=== PATIENT | male | born 2000 | race Caucasian/White ===

== ENCOUNTER 2020-06-13 17:03 | Emergency (ER) | payer BC, OTHER ==
--- NOTE | 2020-06-13 17:13 | EDM.PDOC ---
ED HPI GENERAL MEDICAL PROBLEM - General Stated Complaint: COVID TEST Time Seen by Provider: 06/13/20 17:07 Source of Information: Reports: Patient History Limitations: Reports: No Limitations - History of Present Illness INITIAL COMMENTS - FREE TEXT/NARRATIVE: HISTORY AND PHYSICAL: History of present illness: Patient is a 19-year-old male who presents to the emergency room with complaints of subjective fever, cough, sore throat and body aches x 2 days. 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 He is concerned that he may have COVID and would like to be tested. Patient denies any fever, chills, headache, change in vision, syncope or near syncope. Denies any chest pain, back pain, shortness of breath or cough. Denies any abdominal pain, nausea, vomiting, diarrhea, constipation or dysuria. Has not noted any blood in urine or stool. Patient has been eating and drinking appropriately. Review of systems: As per history of present illness and below otherwise all systems reviewed and negative. Past medical history: As per history of present illness and as reviewed below otherwise noncontributory. Surgical history: As per history of present illness and as reviewed below otherwise noncontributory. Social history: See social history for further information Family history: As per history of present illness and as reviewed below otherwise noncontributory. Physical exam: General: Well developed and well nourished 19-year-old male. Alert and orientated x 3. Nontoxic in appearance and in no acute distress. Vital signs are stable and have been reviewed by me. Nursing notes were reviewed. HEENT: Atraumatic, normocephalic, pupils equal and reactive bilaterally, negative for conjunctival pallor or scleral icterus, mucous membranes moist, TMs normal bilaterally, throat clear, neck supple, nontender, trachea midline. No drooling or trismus noted. No meningeal signs. No hot potato voice noted. Lungs: Clear to auscultation, breath sounds equal bilaterally, chest nontender. Normal work of breathing, no accessory muscles used. Heart: S1S2, regular rate and rhythm without overt murmur Abdomen: Soft, nondistended, nontender. Skin: Intact, warm, dry. No lesions or rashes noted. Hematologic: No petechiae or purpra. Mucosa appropriate color and normal nail bed color and refill. Extremities: Atraumatic, moves all extremities per self without difficulty or deficits, negative for cords or calf pain. Neurovascular unremarkable. Neuro: Awake, alert, oriented. Cranial nerves II through XII unremarkable. Cerebellum unremarkable. Motor and sensory unremarkable throughout. Exam nonfocal. Notes: My physical exam is unremarkable. His vital signs are stable. Negative COVID- 19 screening. We discussed signs and symptoms that would prompt them to return to the Emergency Department. Medication, follow up and supportive care measures were reviewed and discussed. Voices understanding and is agreeable to plan of care. Denies any further questions or concerns at this time. Diagnostics: COVID-19 Therapeutics: None Prescription: None Impression: Viral URI Plan: 1. Today your COVID testing is negative. Continue to follow good hand washing and contact precautions. 2. Make sure you are drinking plenty of fluids. Alternate Tylenol and ibuprofen as needed for pain and fever management. 3. We always encourage you to follow up with your primary care provider or recommended specialist in the next few days for re-evaluation and further care/management. If your symptoms should worsen, new symptoms develop or any of the signs and symptoms we discussed should arise please return to the emergency room or call 911 (if needed). Definitive disposition and diagnosis as appropriate pending reevaluation and review of above. throat Pain Score (Numeric/FACES): 7 - Related Data Allergies Allergy/AdvReac Type Severity Reaction Status Date / Time amoxicillin [Amoxicillin] Allergy Rash Verified 06/13/20 17:16 bacitracin Allergy Rash Verified 06/13/20 17:16 [From Neosporin ([id number])] banana [Banana] Allergy Itching Verified 06/13/20 17:16 neomycin Allergy Rash Verified 06/13/20 17:16 [From Neosporin ([id number])] polymyxin B Allergy Rash Verified 06/13/20 17:16 [From Neosporin ([id number])] Sulfa (Sulfonamide Allergy Hives Verified 06/13/20 17:16 Antibiotics) janett Allergy Hives Uncoded 06/13/20 17:16 Home Meds: Home Meds Albuterol Sulfate [Ventolin Hfa] 1 dose PO PRN 09/11/15 [History] ED ROS GENERAL - Review of Systems Review Of Systems: Comprehensive ROS is negative, except as noted in HPI. ED EXAM, GENERAL - Physical Exam Exam: See Below (See dictation) Course - Vital Signs Last Recorded V/S: Last Vital Signs Temp 98.3 F 06/13/20 17:12 Pulse 90 06/13/20 17:12 Resp 20 06/13/20 17:12 BP 150/93 H 06/13/20 17:12 Pulse Ox 95 06/13/20 17:12 - Orders/Labs/Meds Labs: Laboratory Tests 06/13/20 Range/Units 17:21 COVID-19 (CARLY) NEGATIVE (NEGATIVE) Departure - Departure Time of Disposition: 17:51 Disposition: Home, Self-Care 01 Clinical Impression: Viral upper respiratory illness - Discharge Information Instructions: Viral Respiratory Infection, [id number] Referrals: PCP,None [Primary Care Provider] - Additional Instructions: The following information is given to patients seen in the emergency department who are being discharged to home. This information is to outline your options for follow-up care. We provide all patients seen in our emergency department with a follow-up referral. The need for follow-up, as well as the timing and circumstances, are variable depending upon the specifics of your emergency department visit. If you don't have a primary care physician on staff, we will provide you with a referral. We always advise you to contact your personal physician following an emergency department visit to inform them of the circumstance of the visit and for follow-up with them and/or the need for any referrals to a consulting specialist. The emergency department will also refer you to a specialist when appropriate. This referral assures that you have the opportunity for follow-up care with a specialist. All of these measure are taken in an effort to provide you with optimal care, which includes your follow-up. Under all circumstances we always encourage you to contact your private physician who remains a resource for coordinating your care. When calling for follow-up care, please make the office aware that this follow-up is from your recent emergency room visit. If for any reason you are refused follow-up, please contact the [facility] Emergency Department at and asked to speak to the emergency department charge nurse. [facility] [address] [place] [id number] [facility] [address] [place] [address] Thank you for choosing the [facility] emergency department in [place] for your medical needs today. It was a pleasure caring for you. 1. Today your COVID testing is negative. Continue to follow good hand washing and contact precautions. 2. Make sure you are drinking plenty of fluids. Alternate Tylenol and ibuprofen as needed for pain and fever management. 3. We always encourage you to follow up with your primary care provider or recommended specialist in the next few days for re-evaluation and further care/management. If your symptoms should worsen, new symptoms develop or any of the signs and symptoms we discussed should arise please return to the emergency room or call 911 (if needed). Sepsis Event Note (ED) - Focused Exam Vital Signs: Vital Signs Temp Pulse Resp BP Pulse Ox 06/13/20 17:12 98.3 F 90 20 150/93 H 95
[2020-06-13 17:48] VITALS: BP 150/93
[2020-06-13 18:09] VITALS: PULSE 77
== END 2020-06-13 18:09 | disposition home or self-care (01) ==
LOC: MW.ED 17:03
DX: J06.9 Acute upper respiratory infection, unspecified (principal); Z88.1 Allergy status to other antibiotic agents; Z91.048 Other nonmedicinal substance allergy status; Z91.018 Allergy to other foods; Z88.2 Allergy status to sulfonamides; Z20.828 Contact with and (suspected) exposure to other viral communicable diseases
CPT/HCPCS: 99283; U0002

== ENCOUNTER 2021-08-27 10:04 | Emergency (ER) | payer OTHER ==
[2021-08-27] MEDS ORDERED: Sodium Chloride 0.9% 10 ML Syringe FLUSH PRN (10:15)
[2021-08-27] MEDS ORDERED: Sodium Chloride 0.9% 2.5 ML Syringe FLUSH PRN (10:15)
[2021-08-27] MEDS ORDERED: Sodium Chloride 0.9% 1,000 ML IV ONE (11:02)
--- NOTE | 2021-08-27 11:02 | EDM.PDOC ---
ED HPI GENERAL MEDICAL PROBLEM - General Chief Complaint: Abdominal Pain Stated Complaint: ABDOMINAL PAIN Time Seen by Provider: 08/27/21 11:00 Source of Information: Reports: Patient History Limitations: Reports: No Limitations - History of Present Illness INITIAL COMMENTS - FREE TEXT/NARRATIVE: HISTORY AND PHYSICAL: History of present illness: Patient is a 21-year-old female who presents to the emergency room with complaints of right flank and right lower quadrant pain associated with nausea and vomiting. He states he woke up with the symptoms and has never experienced anything like this previous. Patient denies any fever, chills, headache, change in vision, syncope or near syncope. Denies any chest pain, back pain, shortness of breath or cough. Denies any vomiting, diarrhea, constipation or dysuria. Denies any testicular pain, redness, swelling or penile discharge. Has not noted any blood in urine or stool. Patient has been eating and drinking appropriately. No recent travel or sick contacts. Review of systems: As per history of present illness and below otherwise all systems reviewed and negative. Past medical history: As per history of present illness and as reviewed below otherwise noncontributory. Surgical history: As per history of present illness and as reviewed below otherwise noncontributory. Social history: See social history for further information Family history: As per history of present illness and as reviewed below otherwise noncontributory. Physical exam: General: Well developed and well nourished. Alert and orientated x 3. Nontoxic in appearance and in no acute distress. Vital signs are stable and have been reviewed by me. Nursing notes were reviewed. HEENT: Atraumatic, normocephalic, pupils equal and reactive bilaterally, negative for conjunctival pallor or scleral icterus, mucous membranes moist, trachea midline. No drooling or trismus noted. No meningeal signs. No hot potato voice noted. Lungs: Clear to auscultation bilaterally. No wheezes, rales, or rhonchi. Chest nontender. Normal work of breathing, no accessory muscles used. Heart: S1S2, regular rate and rhythm without overt murmur, gallops, or rubs. No JVD. No peripheral edema Abdomen: Soft, nondistended, RLQ tenderness without rebound tenderness. Normoactive bowel sounds. Negative for masses. Right sided costovertebral tenderness. Skin: Intact, warm, dry. No lesions or rashes noted. Hematologic: No petechiae or purpra. Mucosa appropriate color and normal nail bed color and refill. Extremities: Atraumatic, moves all extremities per self without difficulty or deficits, negative for cords or calf pain. Neurovascular unremarkable. Neuro: Awake, alert, oriented. Cranial nerves II through XII unremarkable. Cerebellum unremarkable. Motor and sensory unremarkable throughout. Exam nonfocal. Psychiatric: Mood and affect are appropriate. Normal thought process. Answering questions appropriately. Please note that the patient was seen and evaluated during the 2019 SARS-CoV-2 novel coronavirus pandemic period. Community viral transmission is ongoing at time of this encounter and the emergency department is operating under pandemic response procedures. Medical Decision Making: Patient is a 21-year-old male who presents to the emergency room with complaints of right lower quadrant/right flank pain and nausea/vomiting. Patient does have right lower quadrant and right flank tenderness. He denies any testicular redness, swelling or penile discharge. He has no concerns of STIs. He states he still able to void and does not have any discomfort. I did offer medication for nausea and pain, he declines. We will do basic lab work along with a CT scan to rule out appendicitis versus kidney stone. Lab work is unremarkable with the exception of elevated AST and ALT. CT shows that the etiology of right lower quadrant pain not evident. Fatty liver. Mild splenomegaly. I have talked with the patient about today's findings, in addition to providing specific details for plan of care. Reassessment at the time of disposition demonstrates that the patient is in no acute distress. The patient is stable for discharge, counseling was provided and we discussed in great detail signs and symptoms that would prompt them to return to the Emergency Department. Medication, follow up and supportive care measures were reviewed and discussed. Voices understanding and is agreeable to plan of care. Denies any further questions or concerns at this time. Diagnostics: CBC, CMP, Lipase, UA, CT abd/pelvis Therapeutics: IV fluids Prescription: Zofran Impression: Transaminitis Abdominal pain Plan: 1. You were evaluated today on an emergent basis. Your labs are within normal limits with the exception of your liver enzymes are slightly elevated. CT shows no evidence of a kidney stone or appendicitis. Symptoms are likely viral in nature. 2. You can alternate Tylenol and ibuprofen as needed for pain and fever management. 3. We encourage you to follow up with your primary care provider and/or recommended specialist in the next few days for re-evaluation and further care/management. 4. If your symptoms should worsen, new symptoms develop or any of the signs and symptoms we discussed should arise please return to the emergency room or call 911 (if needed). Definitive disposition and diagnosis as appropriate pending reevaluation and review of above. Abdomen Pain Score (Numeric/FACES): 5 - Related Data Allergies Allergy/AdvReac Type Severity Reaction Status Date / Time amoxicillin [Amoxicillin] Allergy Rash Verified 06/13/20 17:16 bacitracin Allergy Rash Verified 06/13/20 17:16 [From Neosporin ([id number])] banana [Banana] Allergy Itching Verified 06/13/20 17:16 neomycin Allergy Rash Verified 06/13/20 17:16 [From Neosporin ([id number])] polymyxin B Allergy Rash Verified 06/13/20 17:16 [From Neosporin ([id number])] Sulfa (Sulfonamide Allergy Hives Verified 06/13/20 17:16 Antibiotics) janett Allergy Hives Uncoded 06/13/20 17:16 Home Meds: Home Meds Albuterol Sulfate [Ventolin Hfa] 1 dose PO PRN 09/11/15 [History] Ondansetron [Zofran ODT] 4 mg PO Q6H PRN #8 tab.dis 08/27/21 [Rx] Past Medical History - Past Health History Medical/Surgical History: Denies Medical/Surgical History Social & Family History - Family History Family Medical History: No Pertinent Family History ED ROS GENERAL - Review of Systems Review Of Systems: Comprehensive ROS is negative, except as noted in HPI. ED EXAM, GI/ABD - Physical Exam Exam: See Below (See dictation) Course - Vital Signs Last Recorded V/S: Last Vital Signs Temp 98 F 08/27/21 11:04 Pulse 71 08/27/21 11:04 Resp 16 08/27/21 11:04 BP 131/84 08/27/21 11:04 Pulse Ox - Orders/Labs/Meds Orders: Active Orders 24 hr Category Date Time Status Sodium Chloride 0.9% [Saline Flush] Med 08/27/21 10:15 Active 10 ml FLUSH ASDIRECTED PRN Sodium Chloride 0.9% [Saline Flush] Med 08/27/21 10:15 Active 2.5 ml FLUSH ASDIRECTED PRN Saline Lock Insert [OM.PC] Stat Oth 08/27/21 10:15 Ordered Medication Orders Sodium Chloride (Sodium Chloride 0.9% 10 Ml Syringe) 10 ml FLUSH ASDIRECTED PRN PRN Reason: Keep Vein Open Last Admin: 08/27/21 11:42 Dose: 10 ml Documented by: KEARA Sodium Chloride (Sodium Chloride 0.9% 2.5 Ml Syringe) 2.5 ml FLUSH ASDIRECTED PRN PRN Reason: Keep Vein Open Last Admin: 08/27/21 11:42 Dose: 2.5 ml Documented by: KEARA Labs: Laboratory Tests 08/27/21 08/27/21 08/27/21 Range/Units 11:01 11:10 11:10 WBC 8.78 (4.0-11.0) K/uL RBC 5.67 (4.50-5.90) M/uL Hgb 17.1 H (13.0-17.0) g/dL Hct 48.5 (38.0-50.0) % MCV 85.5 (80.0-98.0) fL MCH 30.2 (27.0-32.0) pg MCHC 35.3 (31.0-37.0) g/dL RDW Std Deviation 40.9 (28.0-62.0) fl RDW Coeff of Ryan 13 (11.0-15.0) % Plt Count 285 (150-400) K/uL MPV 10.70 (7.40-12.00) fL Neut % (Auto) 56.1 (48.0-80.0) % Lymph % (Auto) 31.7 (16.0-40.0) % [place] % (Auto) 10.3 (0.0-15.0) % Eos % (Auto) 1.4 (0.0-7.0) % Baso % (Auto) 0.5 (0.0-1.5) % Neut # (Auto) 4.9 (1.4-5.7) K/uL Lymph # (Auto) 2.8 H (0.6-2.4) K/uL [place] # (Auto) 0.9 H (0.0-0.8) K/uL Eos # (Auto) 0.1 (0.0-0.7) K/uL Baso # (Auto) 0.0 (0.0-0.1) K/uL Nucleated RBC % 0.0 /100WBC Nucleated RBCs # 0 K/uL Sodium 137 (136-148) mmol/L Potassium 4.6 (3.5-5.1) mmol/L Chloride 102 (98-107) mmol/L Carbon Dioxide 27.0 (21.0-32.0) mmol/L BUN 10 (7.0-18.0) mg/dL Creatinine 0.8 (0.8-1.3) mg/dL Est Cr Clr Drug Dosing 162.30 mL/min Estimated GFR (MDRD) > 60.0 ml/min Glucose 99 (74-106) mg/dL Calcium 10.1 (8.5-10.1) mg/dL Total Bilirubin 1.9 H (0.2-1.0) mg/dL AST 84 H (15-37) IU/L ALT 148 H (14-63) IU/L Alkaline Phosphatase 88 (46-116) U/L Total Protein 8.4 H (6.4-8.2) g/dL Albumin 4.4 (3.4-5.0) g/dL Globulin 4.0 (2.6-4.0) g/dL Albumin/Globulin Ratio 1.1 (0.9-1.6) Lipase 69 L (73-393) U/L Urine Color YELLOW Urine Appearance CLEAR Urine pH 5.0 (5.0-8.0) Ur Specific [place] >= 1.030 (1.001-1.035) Urine Protein NEGATIVE (NEGATIVE) mg/dL Urine Glucose (UA) NEGATIVE (NEGATIVE) mg/dL Urine Ketones NEGATIVE (NEGATIVE) mg/dL Urine Occult Blood NEGATIVE (NEGATIVE) Urine Nitrite NEGATIVE (NEGATIVE) Urine Bilirubin NEGATIVE (NEGATIVE) Urine Urobilinogen 0.2 (<2.0) EU/dL Ur Leukocyte Esterase NEGATIVE (NEGATIVE) Meds: Medications Generic Name Dose Route Start Last Admin Trade Name Freq PRN Reason Stop Dose Admin Sodium Chloride 10 ml 08/27/21 10:15 08/27/21 11:42 Sodium Chloride 0.9% 10 Ml Syringe FLUSH 10 ml ASDIRECTED PRN Administration Keep Vein Open Sodium Chloride 2.5 ml 08/27/21 10:15 08/27/21 11:42 Sodium Chloride 0.9% 2.5 Ml Syringe FLUSH 2.5 ml ASDIRECTED PRN Administration Keep Vein Open Discontinued Medications Generic Name Dose Route Start Last Admin Trade Name Freq PRN Reason Stop Dose Admin Sodium Chloride 1,000 mls @ 999 mls/hr 08/27/21 11:02 08/27/21 11:42 Normal Saline IV 08/27/21 12:02 999 mls/hr STAT ONE Administration Departure - Departure Time of Disposition: 13:01 Disposition: Home, Self-Care 01 Clinical Impression: Transaminitis Abdominal pain Qualifiers: Abdominal location: right lower quadrant Qualified Code(s): R10.31 - Right lower quadrant pain - Discharge Information Prescriptions: Ondansetron [Zofran ODT] 4 mg PO Q6H PRN #8 tab.dis PRN Reason: Nausea Instructions: Abdominal Pain, Adult, [id number] Referrals: Celine Fischer PA [Primary Care Provider] - Forms: ED Department Discharge Additional Instructions: The following information is given to patients seen in the emergency department who are being discharged to home. This information is to outline your options for follow-up care. We provide all patients seen in our emergency department with a follow-up referral. The need for follow-up, as well as the timing and circumstances, are variable depending upon the specifics of your emergency department visit. If you don't have a primary care physician on staff, we will provide you with a referral. We always advise you to contact your personal physician following an emergency department visit to inform them of the circumstance of the visit and for follow-up with them and/or the need for any referrals to a consulting specialist. The emergency department will also refer you to a specialist when appropriate. This referral assures that you have the opportunity for follow-up care with a specialist. All of these measure are taken in an effort to provide you with optimal care, which includes your follow-up. Under all circumstances we always encourage you to contact your private physician who remains a resource for coordinating your care. When calling for follow-up care, please make the office aware that this follow-up is from your recent emergency room visit. If for any reason you are refused follow-up, please contact the [facility] Emergency Department at and asked to speak to the emergency department charge nurse. [facility] [address] [place] [address] [facility] [address] [place] [address] Thank you for choosing the [facility] emergency department in [place] for your medical needs today. It was a pleasure caring for you. Today you were seen in the emergency department for abdominal pain. Your prescription was electronically sent to: [place] [facility] Medication/Direction: Kari LIRIANO, this medication is for nausea. Take this medication as directed 1. You were evaluated today on an emergent basis. Your labs are within normal limits with the exception of your liver enzymes are slightly elevated. CT shows no evidence of a kidney stone or appendicitis. Symptoms are likely viral in nature. 2. You can alternate Tylenol and ibuprofen as needed for pain and fever management. 3. We encourage you to follow up with your primary care provider and/or recommended specialist in the next few days for re-evaluation and further care/management. 4. If your symptoms should worsen, new symptoms develop or any of the signs and symptoms we discussed should arise please return to the emergency room or call 911 (if needed). Sepsis Event Note (ED) - Focused Exam Vital Signs: Vital Signs Temp Pulse Resp BP 08/27/21 11:04 98 F 71 16 131/84 - My Orders Last 24 Hours: My Active Orders 08/27/21 10:15 Sodium Chloride 0.9% [Saline Flush] 10 ml FLUSH ASDIRECTED PRN Sodium Chloride 0.9% [Saline Flush] 2.5 ml FLUSH ASDIRECTED PRN Saline Lock Insert [OM.PC] Stat - Assessment/Plan Last 24 Hours: My Active Orders 08/27/21 10:15 Sodium Chloride 0.9% [Saline Flush] 10 ml FLUSH ASDIRECTED PRN Sodium Chloride 0.9% [Saline Flush] 2.5 ml FLUSH ASDIRECTED PRN Saline Lock Insert [OM.PC] Stat
[2021-08-27 11:17] VITALS: PULSE 71
[2021-08-27 12:00] LABS: BLOOD UREA NITROGEN,BUN 10 mg/dL (7.0-18.0); CHLORIDE,CL 102 mmol/L (98-107); GLUCOSE RANDOM 99 mg/dL (74-106); LIPASE 69 U/L (73-393); POTASSIUM,K 4.6 mmol/L (3.5-5.1); SODIUM,NA 137 mmol/L (136-148)
--- NOTE | 2021-08-27 12:55 | CT ---
INDICATION: Right lower quadrant pain Rene appendicitis versus kidney stone. TECHNIQUE: Volumetric helical scanning of the abdomen and pelvis was performed with 100 cc of Isovue 370 contrast material IV. Coronal and sagittal reconstructions were obtained. COMPARISON: None. FINDINGS: There is no evidence of bowel obstruction or inflammation. The appendix is normal. No ureteral stone or obstruction is evident. The kidneys are normal. Fatty change is demonstrated in the liver. The liver is normal in size and shape. No bile duct dilation is evident. The spleen is mildly enlarged. The adrenal glands, kidneys and pancreas are within normal limits. No lymphadenopathy or free fluid is evident. The prostate is negative. The lung bases are clear, and the heart size is normal. IMPRESSION: 1. Etiology of right lower quadrant pain not evident. 2. Fatty liver. 3. Mild splenomegaly. Please note that all CT scans at this facility use dose modulation, iterative reconstruction, and/or weight-based dosing when appropriate to reduce radiation dose to as low as reasonably achievable. Dictated by Quoc Ray MD @ 08/27/2021 12:55:26 PM (Electronically Signed)
[2021-08-27 13:38] VITALS: BP 128/78
[2021-08-27] MEDS ORDERED: Iopamidol 755 MG/ML 500 ML Multipack Bottle IVPUSH ONE (15:49)
== END 2021-08-27 13:38 | disposition home or self-care (01) ==
LOC: MW.ED 10:04
DX: R10.31 Right lower quadrant pain (principal); R74.01 Elevation of levels of liver transaminase levels; Z88.0 Allergy status to penicillin; Z88.1 Allergy status to other antibiotic agents; Z88.2 Allergy status to sulfonamides; Z91.048 Other nonmedicinal substance allergy status
CPT/HCPCS: 74178; 80053; 81003; 83690; 85025; 99284; J7030; Q9967